=== PATIENT | male | born 1990 | race American Indian/Alaskan Native ===

== ENCOUNTER 2017-05-26 18:13 | Emergency (ER) | payer SELFPAY ==
[2017-05-26 18:59] VITALS: BP 135/79
== END 2017-05-26 23:45 | disposition left against medical advice (07) ==
LOC: ED 18:13
DX: R51 Headache (principal); M25.579 Pain in unspecified ankle and joints of unspecified foot; Z53.21 Procedure and treatment not carried out due to patient leaving prior to being seen by health care provider